=== PATIENT | male | born 1950 | race Caucasian/White ===

== ENCOUNTER 2017-11-05 06:55 | Day surgery (SDC) | payer MEDICARE, BC ==
[2017-11-04 12:35] VITALS: BMI 30.1
[2017-11-05] MEDS ORDERED: Fentanyl 100 MCG/2 ML VIAL ONE (09:56)
[2017-11-05] MEDS ORDERED: Midazolam HCl 2 mg/2 ml Vial ONE (09:56)
[2017-11-05] MEDS ORDERED: Iopamidol 370 76% 100 ML VIAL ONE (16:40)
--- NOTE | 2017-11-12 19:35 | EKG ---
Test Reason : PREOP Blood Pressure : / mmHG Vent. Rate : 053 BPM Atrial Rate : 053 BPM P-R Int : 156 ms QRS Dur : 104 ms QT Int : 430 ms P-R-T Axes : 051 039 094 degrees QTc Int : 403 ms Sinus bradycardia Otherwise normal ECG When compared with ECG of 09-SEP-2016 15:09, ST no longer elevated in Lateral leads T wave inversion now evident in Lateral leads QT has shortened Confirmed by SAUL ARAMBULA ([id number]) on 11/12/2017 7:35:22 PM Referred By: SCHUYLER Confirmed By:SAUL ARAMBULA
== END 2017-11-05 14:20 | disposition home or self-care (01) ==
LOC: CCL 06:55
PROVIDERS: ATTEND Internal Medicine Cardiovascular Disease
DX: I25.10 Atherosclerotic heart disease of native coronary artery without angina pectoris (principal); I25.5 Ischemic cardiomyopathy; I48.91 Unspecified atrial fibrillation; I10 Essential (primary) hypertension; Z95.1 Presence of aortocoronary bypass graft; Z91.013 Allergy to seafood; Z88.0 Allergy status to penicillin; Z88.8 Allergy status to other drugs, medicaments and biological substances; Z91.041 Radiographic dye allergy status; Z79.82 Long term (current) use of aspirin; Z79.899 Other long term (current) drug therapy
CPT/HCPCS: 93005; 93459; 93798; C1769; 93010; 99152; 99153; J1644; J2250; J3010

== ENCOUNTER 2020-01-12 00:46 | Observation (INO) | payer MEDICARE ==
[2020-01-12 01:14] LABS: #Basophils 0.1 thou/uL (0.0-0.2); #Eosinphils 0.4 thou/uL (0.0-0.7); #Lymphocytes 2.8 thou/uL (1.20-3.40); #Monocytes 0.8 thou/uL (0.11-0.59); #Neutrophils 6.5 thou/uL (1.40-6.50); %Basophils 0.5 % (0.0-1.0); %Eosinophils 3.5 % (0.0-10.0); %Lymphocytes 26.5 % (21.0-51.0); %Monocytes 7.8 % (0.0-10.0); %Neutrophils 61.8 % (42.0-75.0); Hemoglobin 13.8 g/dL (14.0-18.0); Mean Corpuscular HGB CONC 33.1 g/dL (32.0-36.0); Mean Corpuscular Hemoglobin 29.7 pg (27.0-31.0); Mean Corpuscular Volume 89.8 fL (78.0-98.0); Mean Platelet Volume 10.8 fL (7.4-10.4); Platelet Count 180 thou/uL (130-400); RBC Distribution Width 13.3 % (11.5-14.5); Red Blood Cell (RBC) Count 4.65 mill/uL (4.70-6.10); White Blood Cell (WBC) Count 10.4 thou/uL (4.8-10.8)
[2020-01-12 01:21] LABS: PTT 29.2 SEC (22.9-36.1); Prothrombin Time 12.9 SEC (12.0-14.7)
[2020-01-12 01:28] LABS: ALT (SGPT) 17 U/L (8-55); AST (SGOT) 13 U/L (5-34); Alkaline Phosphatase 60 U/L (40-110); Anion Gap 12 mmol/L (10-20); BUN (Urea Nitrogen) 29 mg/dL (8.4-25.7); Bilirubin, Total 0.5 mg/dL (0.2-1.2); Calc. Creatinine Clearance 0 mL/min (70-130); Calcium 8.9 mg/dL (7.8-10.44); Carbon Dioxide 27 mmol/L (23-31); Chloride 109 mmol/L (98-107); Estimated GFR-MDRD 66; Globulin 2.4 g/dL (2.4-3.5); Glucose 97 mg/dL (80-115); Potassium 3.9 mmol/L (3.5-5.1); Protein, Total 6.4 g/dL (5.8-8.1); Sodium 144 mmol/L (136-145)
[2020-01-12] MEDS ORDERED: cloNIDine 0.1 MG TAB ONE (02:24)
[2020-01-12 04:08] VITALS: BMI 28.9
--- NOTE | 2020-01-12 07:53 | CT ---
PRELIMINARY REPORT/[facility]/EMERGENCY AFTER HOURS PROCEDURE: This report was discussed with FABIENNE LYLE MD by Ana Mosher on Jan 12, 2020 01:13:00 CDT. Addendum electronically signed by Ana Mosher on January 12, 2020 1:13:25 AM CDT EXAM: CT Head Without Intravenous Contrast. CLINICAL HISTORY: M69 presented to the ED with a c/o left sided numbness and tingling on the left migue e onset 2230. Pt reports tingling sensation to the left chest and arm. TECHNIQUE: Axial computed tomography images of the head/brain without intravenous contrast. COMPARISON: None provided. FINDINGS: BRAIN: No acute intraparenchymal hemorrhage. No mass lesion. No CT evidence for acute territorial inf arct. No midline shift or extra-axial collection. VENTRICLES: No hydrocephalus. ORBITS: The orbits are unremarkable. SINUSES AND MASTOIDS: The paranasal sinuses and mastoid air cells are unremarkable. SOFT TISSUES: No significant facial or scalp soft tissue swelling evident. No radiopaque foreign body is seen. BONES: No acute skull fracture. IMPRESSION: No acute intracranial abnormality. ELECTRONICALLY SIGNED BY: Rahgu Mendoza MD Jan 12, 2020 1:08:41 AM CDT FINAL REPORT CT BRAIN WITHOUT CONTRAST: I agree with preliminary report given by [facility] Transcribed Date/Time: 01/12/2020 8:00 AM
[2020-01-12] MEDS ORDERED: Acetaminophen 325 MG TAB PO PRN (07:57)
[2020-01-12] MEDS ORDERED: Senokot S 8.6-50 MG TAB PO PRN (07:57)
[2020-01-12] MEDS ORDERED: Cepastat Lozenges 1 LOZ PO PRN (07:57)
[2020-01-12] MEDS ORDERED: Ondansetron ODT 4 MG TAB PO PRN (07:57)
[2020-01-12] MEDS ORDERED: Bisacodyl 10 MG SUPP PR PRN (07:57)
[2020-01-12] MEDS ORDERED: Ondansetron PF 4 MG/2 ML Vial IVP PRN (07:57)
[2020-01-12] MEDS ORDERED: Zolpidem Tartrate 5 MG TAB PO PRN (07:57)
[2020-01-12] MEDS ORDERED: Guaifenesin DM 100-10/5 ML UDCUP PO PRN (07:57)
[2020-01-12] MEDS ORDERED: Calcium Carbonate 500 MG ChewTAB PO PRN (07:57)
[2020-01-12] MEDS ORDERED: hydrALAZINE 20 MG/ML VIAL SLOW IVP PRN (07:57)
[2020-01-12] MEDS ORDERED: Loperamide HCl 2 MG CAP PO PRN (07:57)
--- NOTE | 2020-01-12 08:39 | MRI ---
MRI BRAIN WITHOUT CONTRAST: HISTORY: Left-sided facial numbness and droop CORRELATION: CT scan from 01/12/2020. FINDINGS: No restricted diffusion is seen. There are multiple foci of T2 prolongation in the periventricular wh ite matter, consistent with chronic small vessel ischemic disease. The ventricular size is appropriate and the basilar cisterns are patent. No evidence of acute infarct, hemorrhage, midline shift or abnormal extra-axial fluid collections is seen. 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 The visualized paranasal sinuses and mastoid air cells are well-aerated. IMPRESSION: No evidence of acute intracranial process. RECOMMENDATION: MRI with and without IV contrast using the sella/pituitary protocol is recommended.
[2020-01-12] MEDS ORDERED: Metoprolol Tartrate 25 MG TAB PO SCH (09:00)
[2020-01-12] MEDS: Aspirin 325 mg Enteric Coated Tablet PO SCH (09:43)
[2020-01-12] MEDS: Famotidine 20 MG TAB PO SCH ×2 (09:43→21:48)
[2020-01-12] MEDS: Lisinopril 5 MG TAB PO SCH ×2 (09:44→21:48)
--- NOTE | 2020-01-12 11:43 | ULT ---
BILATERAL CAROTID DUPLEX ULTRASOUND: HISTORY: TIA TECHNIQUE: Grayscale, color-flow and spectral Doppler ultrasound imaging of the extracranial carotid artery syst ems was performed bilaterally. FINDINGS: There is small amount of plaque formation in the carotid bulbs. The peak systolic velocity in the right ICA measures 62 cm/s with an end-diastolic velocity of 15 cm/ s and a systolic ratio of 0.95. The peak systolic velocity in the left ICA measures 72 cm/s with an end-diastolic velocity of 14 cm/s and a systolic ratio of 0.85. Flow in both vertebral arteries remains antegrade. IMPRESSION: No evidence of hemodynamically significant stenosis in either ICA
--- NOTE | 2020-01-12 11:51 | HP ---
PRIMARY CARE PHYSICIAN: Dr. Leodan Hanley. REASON FOR ADMISSION: TIA. HISTORY OF PRESENT ILLNESS: A 69-year-old male with a past medical history of hypertension, dyslipidemia, coronary artery disease with history of CABG, who presented to emergency room for complaint of left-sided numbness and tingling over left side of face and left upper extremity. Per the patient, symptoms started around 11 o'clock last night. The patient called Paramedics and Paramedics advised him to go to emergency room. The patient decided to drive by himself. When the patient arrived to emergency room, the patient's symptom was already resolving. He was hypertensive in the emergency room. In the emergency room, the patient had CT of brain, which was negative for any acute process. The patient was admitted overnight to the Telemetry Floor. He was given clonidine in the emergency room. When I saw this patient at that time, the patient was no longer complaining of any paresthesia on left side. The patient had an MRI of brain, which came back negative for any acute CVA. 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 The patient was hypotensive after arrival. The patient did not have any chest pain, palpitation, headache, speech problem, any difficulty swallowing, diplopia, or ataxia. REVIEW OF SYSTEMS: All review of systems reviewed and negative except as mentioned in HPI. PAST MEDICAL HISTORY: Hypertension, dyslipidemia, coronary artery disease with history of CABG. PAST SURGICAL HISTORY: Back surgery in 1984, abdominal surgery, nose surgery, and CABG x4. PAST PSYCHIATRIC HISTORY: Reviewed and negative. SOCIAL HISTORY: The patient is , lives at home with his . No history of tobacco, alcohol, or illicit drug abuse. FAMILY HISTORY: No strong family history of premature coronary artery disease, stroke, or cancer. ALLERGIES: DILAUDID, IODINE, PENICILLIN, AND SHELLFISH. CURRENT HOME MEDICATIONS: 1. Lipitor 20 mg p.o. at bedtime. 2. Lisinopril 20 mg b.i.d. 3. Metoprolol 12.5 mg twice daily. 4. Aspirin 325 mg p.o. daily. PHYSICAL EXAMINATION: VITAL SIGNS: On arrival, blood pressure 199/91, pulse 57, respiratory rate 17, temperature 97.8, and saturation 95% on room air. Weight 90 kg. GENERAL: The patient is currently alert, awake, and in no acute distress. HEAD: Normocephalic and atraumatic. EYES: Pupils round and reactive to light. Extraocular muscles intact. ENT: Oropharynx within normal limits. Moist mucous membranes. No oral lesion. No pharyngeal erythema. No exudate. NECK: Supple. No JVD. No meningeal signs of irritation. LUNGS: Clear to auscultation without any rhonchi or rales. CARDIAC: S1 and S2, regular. No murmur. No gallop. No rub. ABDOMEN: Soft. Bowel sounds present. Nontender, nondistended. No organomegaly. No mass. EXTREMITIES: No edema. Good distal pulsation. SKIN: No skin rash. HEMATOLOGIC: No lymphadenopathy. NEUROLOGIC: Nonfocal examination. The patient is moving all 4 limbs. Speech normal. Cranial nerves 2 through 12 intact. Motor and sensation within normal limits. Plantar bilateral flexor. No cerebellar sign. DIAGNOSTIC STUDIES: EKG showing sinus bradycardia, nonspecific ST-T changes. CT of brain based on my review, no acute intracranial process. 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 SIGNIFICANT LABORATORY DATA: WBC 10.4, hemoglobin 13.8, and platelets 180. INR 1.0. BMP; sodium 144, potassium 3.9, chloride 109, carbon dioxide 27, BUN 29, creatinine 1.11, glucose 97, and calcium 8.9. LFT; AST 13, ALT 17, alkaline phosphatase 60, albumin 4.0. ASSESSMENT AND PLAN: Impression: 1. Transient ischemic attack. The patient had negative MRI and negative CT of brain. The patient has multiple risk factors for stroke. The patient has elevated blood pressure. The patient will be observed to stroke floor. Neurology will be consulted. PT/OT will be evaluated. We will obtain echocardiography as well as carotid Doppler. We will check lipid profile tomorrow. We will monitor him 24 hours. If there is no event and if his blood pressure is well controlled, then we will consider discharging him home tomorrow. 2. Sinus bradycardia. Because of low pulse rate, we will discontinue metoprolol and instead we will start hydralazine for better blood pressure control. At this point, the patient is not tolerating beta-karly therapy. 3. Coronary artery disease with history of coronary artery bypass grafting. Continue aspirin 325 mg p.o. daily, continue lisinopril 20 mg b.i.d. 4. Hypertensive urgency. We are starting lisinopril 20 mg b.i.d. and hydralazine 25 mg t.i.d. We will use hydralazine p.r.n. basis. 5. Dyslipidemia. Check lipid profile tomorrow and continue Lipitor 40 mg p.o. at bedtime. 6. Deep venous thrombosis prophylaxis, not needed because we are expecting discharge in 24 hours. 7. GI prophylaxis, Pepcid 20 mg p.o. b.i.d. 8. Code status, the patient is full code. 9. Disposition plan within 24 hours. Plan of care discussed with the patient in detail. Job ID: [id number]
[2020-01-12] MEDS: hydrALAZINE 25 MG TAB PO SCH ×2 (14:51→21:48)
[2020-01-12] MEDS ORDERED: Atorvastatin Calcium 40 MG TAB PO SCH (21:00)
[2020-01-13 05:30] LABS: Cardiac Risk 2.9 (Less than 4.5)
[2020-01-13] MEDS ORDERED: Amlodipine 5 MG TAB PO SCH (09:00)
--- NOTE | 2020-01-13 09:40 | PDOC.HOSPP ---
- Subjective Encounter Date: 01/13/20 Encounter Time: 07:10 Subjective: Patient seen and examined. No new complaints. No overnight events - Objective Vital Signs & Weight: Vital Signs (12 hours) Temp Pulse Resp BP BP Pulse Ox 01/13/20 09:27 96 01/13/20 07:14 97.9 F 49 L 18 150/67 H 96 01/13/20 04:25 177/79 H 01/13/20 03:45 98.0 F 55 L 16 196/91 H 93 L 01/13/20 00:13 98.0 F 55 L 16 161/75 H 97 01/12/20 21:48 61 167/79 H Weight Weight 201 lb 9.6 oz I&O: 01/12/20 01/13/20 01/14/20 06:59 06:59 06:59 Intake Total 420 2080 Balance 420 2080 Result Diagrams: 01/12/20 01:03 01/12/20 01:03 Radiology Reviewed by me: Yes EKG Reviewed by me: Yes Hospitalist ROS - Review of Systems ENT: denies: ear pain, ear discharge, nose pain, nose discharge, nose congestion , mouth pain, mouth swelling, throat pain, throat swelling, other Respiratory: denies: cough, dry, shortness of breath, hemoptysis, SOB with excertion, pleuritic pain, sputum, wheezing, other Cardiovascular: denies: chest pain, palpitations, orthopnea, paroxysmal noc. dyspnea, edema, light headedness, other Gastrointestinal: denies: nausea, vomiting, abdominal pain, diarrhea, constipation, melena, hematochezia, other Genitourinary: denies: dysuria, frequency, incontinence, hematuria, retention, other - Medication Medications: Active Medications Generic Name Dose Route Start Last Admin Trade Name Freq PRN Reason Stop Dose Admin Aspirin 325 mg 01/12/20 09:00 01/12/20 09:43 Ecotrin PO 325 mg DAILY WILLIE Administration Atorvastatin Calcium 40 mg 01/12/20 21:00 01/12/20 21:47 Lipitor PO 40 mg HS WILLIE Administration Famotidine 20 mg 01/12/20 09:00 01/12/20 21:48 Pepcid PO 20 mg BID WILLIE Administration Hydralazine HCl 25 mg 01/12/20 15:00 01/12/20 21:48 Apresoline PO 25 mg TID WILLIE Administration Lisinopril 20 mg 01/12/20 09:00 01/12/20 21:48 Zestril PO 20 mg BID WILLIE Administration Sodium Chloride 10 ml 01/12/20 07:57 01/12/20 21:49 Flush - Normal Saline IVF 10 ml PRN PRN Administration Saline Flush - Exam General Appearance: NAD, awake alert Eye: PERRL, anicteric sclera ENT: normocephalic atraumatic, no oropharyngeal lesions Neck: supple, symmetric, no JVD Heart: RRR, no murmur, no gallops, no rubs, normal peripheral pulses Respiratory: CTAB, no wheezes, no rales, no ronchi Gastrointestinal: soft, non-tender, non-distended, normal bowel sounds Extremities: no cyanosis, no clubbing, no edema Skin: normal turgor, no lesions Neurological: no focal deficits, no new deficit Musculoskeletal: normal tone, normal strength Hosp A/P (1) TIA (transient ischemic attack) Code(s): G45.9 - TRANSIENT CEREBRAL ISCHEMIC ATTACK, UNSPECIFIED Status: Acute (2) Dyslipidemia Code(s): E78.5 - HYPERLIPIDEMIA, UNSPECIFIED Status: Chronic (3) CAD (coronary artery disease) Code(s): I25.10 - ATHSCL HEART DISEASE OF [place] CORONARY ARTERY W/O ANG PCTRS Status: Chronic (4) Hypertension Code(s): I10 - ESSENTIAL (PRIMARY) HYPERTENSION Status: Chronic - Plan old records reviewed/req today MRI brain with contrast neuro to see echo pending possible dc later today
[2020-01-13] MEDS: hydrALAZINE 25 MG TAB PO SCH ×2 (10:37→14:47)
[2020-01-13] MEDS: Lisinopril 5 MG TAB PO SCH (10:37)
[2020-01-13] MEDS: Aspirin 325 mg Enteric Coated Tablet PO SCH (10:37)
[2020-01-13] MEDS: Famotidine 20 MG TAB PO SCH (10:37)
[2020-01-13 12:11] VITALS: TEMP 97.3
--- NOTE | 2020-01-13 13:22 | MRI ---
MRI BRAIN WITH AND WITHOUT IV CONTRAST: HISTORY: Normal brain MRI of 01/12/2020. FINDINGS: The 6 x 7 x 8 mm cystic mass in the sella with mild suprasellar extension noted on the MRI of 01/12/20 20 is better visualized on the current exam (pituitary protocol) with hyperintense T1 and T2 signal a nd no postcontrast enhancement. This did not demonstrate any calcification on the CT scan of 01/12/20. This likely represents a Ratke's cleft cyst and much less likely a craniopharyngioma. No mass e ffect is seen on the optic chiasm. No restricted diffusion is noted in the brain. There are multiple foci of t2 prolongation in the per iventricular white matter consistent with chronic small-vessel ischemic disease. The ventricular siz e is normal and the basilar cisterns patent. No abnormal intraaxial mass or abnormal postcontrast en hancement is seen. 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 RECOMMENDATION: Six-month followup is recommended (pituitary protocol with and without IV contrast). POS: BASHIR
[2020-01-13] MEDS ORDERED: Magnevist 469MG/ML 20 ML VIAL ONE (15:38)
[2020-01-13 16:40] VITALS: BP 150/69
--- NOTE | 2020-01-14 08:59 | DIS ---
DATE OF ADMISSION: 01/12/2020 DATE OF DISCHARGE: 01/13/2020 PRIMARY CARE PHYSICIAN: Dr. Leodan Hanley. DISCHARGE DISPOSITION: Home. PRIMARY DISCHARGE DIAGNOSIS: Transient ischemic attack. SECONDARY DISCHARGE DIAGNOSES: Hypertension, dyslipidemia, coronary artery disease. PRIMARY PROCEDURE/OPERATION: None. RADIOLOGICAL INVESTIGATION: MRI brain, carotid ultrasound, echocardiography. SIGNIFICANT LABORATORY DATA: WBC 10.4, hemoglobin 13.8, platelet . INR 1.0. Creatinine 1.1. LDL 43. DISCHARGE MEDICATION: 1. Lipitor 20 mg p.o. at bedtime. 2. Lisinopril 20 mg b.i.d. 3. Amlodipine 5 mg daily. 4. Aspirin 325 mg daily. 5. Hydralazine 25 mg t.i.d. CONTRAINDICATION: None. CODE STATUS: Full code. INPATIENT GUIDANCE AND CONTROL SYSTEM ENGINEER: Faby Devi MD. TEST RESULTS PENDING ON DISCHARGE: None. ALLERGIES: HYDROMORPHONE, CONTRAST, PENICILLIN. DISCHARGE PLAN: Posthospital, the patient will follow up with primary care physician in one week. HOSPITAL COURSE: A 69-year-old male with above-mentioned medical problem, who was admitted for TIA symptoms. He was having left-sided facial and upper extremity tingling, numbness sensation. In the emergency room, patient had CT brain which was negative. 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 Carotid Doppler is negative. Echocardiography pending. The patient is ambulatory, tolerating p.o. well, and he is hemodynamically stable. While in hospital, his blood pressure was not well controlled and that is why we increased hydralazine and amlodipine. The patient is seen and examined. The patient is medically stable for discharge today. Job ID: [id number]
--- NOTE | 2020-01-14 14:48 | EKG ---
Test Reason : Blood Pressure : / mmHG Vent. Rate : 050 BPM Atrial Rate : 050 BPM P-R Int : 150 ms QRS Dur : 100 ms QT Int : 458 ms P-R-T Axes : 040 053 102 degrees QTc Int : 417 ms Sinus bradycardia Abnormal ECG Confirmed by FABIENNE LYLE M.D. ([id number]), scientific publications editor ALINA DUCKWORTH ([id number]) on 01/14/2020 2:47:48 PM Referred By: Confirmed By:FABIENNE LYLE M.D.
== END 2020-01-13 18:17 | disposition home or self-care (01) ==
LOC: ERS 00:46 → 2SW 02:02
PROVIDERS: ADMIT Pediatrics; ATTEND Internal Medicine
DX: G45.9 Transient cerebral ischemic attack, unspecified (principal); I16.0 Hypertensive urgency; I10 Essential (primary) hypertension; E78.5 Hyperlipidemia, unspecified; I25.10 Atherosclerotic heart disease of native coronary artery without angina pectoris; Z79.82 Long term (current) use of aspirin; Z79.899 Other long term (current) drug therapy; Z88.0 Allergy status to penicillin; Z88.5 Allergy status to narcotic agent; Z91.013 Allergy to seafood; Z91.041 Radiographic dye allergy status; Z95.1 Presence of aortocoronary bypass graft
CPT/HCPCS: 70450; 70551; 70553; 80053; 80061; 82962; 85025; 85610; 85730; 93005; 93306; 93880; 97116; 97139 ×4; 99285; G0378 ×3; 36415; 36416; A9579

== ENCOUNTER 2020-05-07 05:44 | Outpatient (CLI) | payer MEDICARE, OTHER ==
[2020-05-07 14:01] LABS: #Eosinphils 0.2 thou/uL (0.0-0.7); #Lymphocytes 1.6 thou/uL (1.20-3.40); #Monocytes 0.8 thou/uL (0.11-0.59); #Neutrophils 5.2 thou/uL (1.40-6.50); %Basophils 0.6 % (0.0-1.0); %Eosinophils 2.6 % (0.0-10.0); %Lymphocytes 20.4 % (21.0-51.0); %Monocytes 10.1 % (0.0-10.0); %Neutrophils 66.3 % (42.0-75.0); Hemoglobin 13.2 g/dL (14.0-18.0); Mean Corpuscular HGB CONC 32.2 g/dL (32.0-36.0); Mean Corpuscular Hemoglobin 29.3 pg (27.0-31.0); Mean Platelet Volume 11.2 fL (7.4-10.4); Platelet Count 169 thou/uL (130-400); RBC Distribution Width 13.7 % (11.5-14.5); Red Blood Cell (RBC) Count 4.51 mill/uL (4.70-6.10); White Blood Cell (WBC) Count 7.8 thou/uL (4.8-10.8)
[2020-05-07 14:08] LABS: INR-International Normal Ratio 2.1; PTT 36.4 sec (22.9-36.1); Prothrombin Time 23.2 sec (12.0-14.7)
[2020-05-07 14:21] LABS: Anion Gap 14 mmol/L (10-20); BUN (Urea Nitrogen) 38 mg/dL (8.4-25.7); Calc. Creatinine Clearance 0 mL/min (70-130); Calcium 8.8 mg/dL (7.8-10.44); Carbon Dioxide 22 mmol/L (23-31); Chloride 108 mmol/L (98-107); Estimated GFR-MDRD 55; Glucose 63 mg/dL (80-115); Potassium 4.3 mmol/L (3.5-5.1); Sodium 140 mmol/L (136-145)
[2020-05-08 13:10] LABS: SARS-CoV-2 MS2 Positive; SARS-CoV-2 N Gene Negative; SARS-CoV-2 S Gene Negative; SARS-CoV-2 orf1ab Negative
== END 2020-05-07 05:45 | disposition home or self-care (01) ==
LOC: LABBT 05:44
PROVIDERS: ATTEND Internal Medicine Cardiovascular Disease
DX: Z01.812 Encounter for preprocedural laboratory examination (principal); Z11.59 Encounter for screening for other viral diseases; G45.9 Transient cerebral ischemic attack, unspecified
CPT/HCPCS: 80048; 85025; 85610; 85730; U0003; 87635

== ENCOUNTER 2020-05-10 06:50 | Day surgery (SDC) | payer MEDICARE, OTHER ==
[2020-05-03 13:12] VITALS: BMI 28.4
[2020-05-10] MEDS ORDERED: PROPOFOL 20 ML ONE (08:31)
[2020-05-10] MEDS ORDERED: Lidocaine 1% PF 5 ML VIAL ONE (11:21)
--- NOTE | 2020-05-10 14:03 | CCLSPC ---
PROCEDURE PERFORMED: Transesophageal echo. PRE-PROCEDURE DIAGNOSIS: Paroxysmal atrial fibrillation with previous left atrial ligation. POST-PROCEDURE DIAGNOSIS: Successful and complete ligation of left atrial appendage. The Anesthesiology Department provided with sedation for the patient. Please see their notes for details. After adequate sedation was achieved, the transesophageal probe was inserted into the mouth and into the esophagus. Multiplanar views were then obtained. Left ventricle is normal size with normal wall thickness. Systolic function seems reduced at about 40% to 45%. Left atrium is dilated. Left atrial appendage seems to be fully ligated. It is not visualized at all. I can see the bed of the left atrial appendage and there is absolutely no flow in and out. Right atrium is dilated. Right ventricle is normal size, normal systolic function. Aortic valve is sclerotic but opens well. There is no stenosis. Mild aortic insufficiency. Mitral valve is structurally normal. There is mild to moderate MR with two jets of MR on the posterior and anterior parts of the valve. Tricuspid valve is structurally normal. There is mild TR. Pulmonary valve is structurally normal. There is mild PI. The interatrial septum appears to be intact by color Doppler. CONCLUSIONS: 1. Systolic function at 40% to 45%. 2. Bilateral atrial enlargement. 3. Aortic valve sclerosis with mild AI. 4. Mild TR. 5. Mild to moderate MR. 6. Mild PI. 7. Left atrial appendage has successfully been ligated with no flow. Job ID: [id number]
== END 2020-05-10 10:00 | disposition home or self-care (01) ==
LOC: CCL 06:50
PROVIDERS: ATTEND Internal Medicine Cardiovascular Disease
PROC: B24BZZ4 Ultrasonography of Heart with Aorta, Transesophageal (ICD-10-PCS; principal; 2020-05-10)
DX: I48.0 Paroxysmal atrial fibrillation (principal); I35.1 Nonrheumatic aortic (valve) insufficiency; I35.8 Other nonrheumatic aortic valve disorders; I34.0 Nonrheumatic mitral (valve) insufficiency; I36.1 Nonrheumatic tricuspid (valve) insufficiency; I25.5 Ischemic cardiomyopathy; I10 Essential (primary) hypertension; I25.2 Old myocardial infarction; I25.10 Atherosclerotic heart disease of native coronary artery without angina pectoris; Z86.73 Personal history of transient ischemic attack (TIA), and cerebral infarction without residual deficits; Z79.01 Long term (current) use of anticoagulants; Z79.899 Other long term (current) drug therapy; Z88.0 Allergy status to penicillin; Z88.5 Allergy status to narcotic agent; Z91.013 Allergy to seafood; Z91.041 Radiographic dye allergy status; Z95.1 Presence of aortocoronary bypass graft; Z98.890 Other specified postprocedural states
CPT/HCPCS: 93312; J2704